=== PATIENT | female | born 1945 | race African-American/Black ===

== ENCOUNTER 2023-11-25 16:54 | Emergency (ER) | payer MEDICARE ==
[~2023-11-25] VITALS: Ht 167.6 cm; Wt 79.0 kg
[2023-11-25 17:01] VITALS: O2SAT 99
[2023-11-25] MEDS ORDERED: NAPR375T5 PO (22:47)
[2023-11-25 23:41] VITALS: BP 140/80; PULSE 86; RESP 18; TEMP 98.6
== END 2023-11-25 23:44 | disposition home or self-care (01) ==
LOC: ER 16:54
DX: M54.50 Low back pain, unspecified (principal); M25.552 Pain in left hip; M79.10 Myalgia, unspecified site; Z98.890 Other specified postprocedural states
CPT/HCPCS: 72100; 73522; 99284